=== PATIENT | female | born 1980 | race Caucasian/White ===

== ENCOUNTER → 2017-03-12 | Outpatient (CLI) | payer BC, OTHER ==
[~2017-03-12] MED LIST: BCP PO; CALCIUM; DCS100C PO; FLUO20CA42 PO; HCPR10FM RC; HYDR-3720 PO; HYDR-757 PO; IBP800T PO; MESA800T PO; MULT-608; MULT-985 PO; PRENATAL
--- NOTE | 2017-03-12 08:08 | Diagnostic Imaging Report ---
PROCEDURE: US Gallbladder. TECHNIQUE: Multiple real-time grayscale images were obtained over the right upper quadrant in various projections. Indication: Generalized abdominal bloating, diarrhea. Comparison: 05/12/2013. Discussion: Sonographic evaluation of the right upper quadrant was performed. The liver is normal in echotexture and size. Within the right hepatic lobe there is a 1.1 x 1.4 x 1.4 cm ill-defined hyperechoic nodule which appears new from the prior exam. Findings could be seen with a hemangioma, however, given its interval development, the underlying etiology is indeterminate. At a minimum, recommend short-term 3 month sonographic followup to document stability. More definitive evaluation could be performed with multiphase contrast-enhanced CT or MRI of the abdomen as clinically indicated. The gallbladder appears normal without evidence of cholelithiasis, wall thickening, or pericholecystic fluid. No evidence of biliary duct dilatation. The common bile duct is normal measuring 0.4 cm. The pancreas appears normal as visualized. The right kidney appears normal in echotexture and size without evidence of hydronephrosis or renal mass. The right kidney measures 11.5 cm. There is a simple appearing anechoic 1.3 cm cyst within the right kidney, benign. There is no ascites or abnormal bowel loops identified. No sonographic Amaya sign was reported. Impression: 1. Interval development of a 1.4 cm hyperechoic nodule within the right hepatic lobe, indeterminate. See above recommendations. 2. Simple appearing 1.3 cm right renal cyst. Dictated by: Dictated on workstation # [id number]
== END ==
LOC: RAD 07:03
PROVIDERS: ATTEND Family Medicine
DX: N28.1 Cyst of kidney, acquired (principal); K76.9 Liver disease, unspecified; R19.7 Diarrhea, unspecified
CPT/HCPCS: 76705

== ENCOUNTER → 2017-03-19 | Outpatient (CLI) | payer OTHER ==
[~2017-03-19] MED LIST changes: -BCP PO; +CATHETER FLUSH 10 ML SYR IV PRN; -FLUO20CA42 PO; -HCPR10FM RC; -MESA800T PO; -MULT-985 PO
--- NOTE | 2017-03-19 10:06 | Diagnostic Imaging Report ---
EXAMINATION: HIDA with EF measurements Indication: Abdominal pain TECHNIQUE: After the intravenous administration of 5.1 mCi of Tc 99m Choletec, imaging over the abdomen was obtained. This was followed by administration of Ensure orally to stimulate intrinsic CCK secretion, followed by continued imaging with ejection fraction measured. FINDINGS: There is homogeneous uptake in the liver with prompt bile duct and gallbladder filling seen. Bowel activity is seen at 55 minutes. Based on further imaging and gallbladder area of interest activity measurements after the administration of Ensure, the gallbladder ejection fraction is estimated at 42%. IMPRESSION: 1. Normal hepatobiliary uptake and Gallbladder filling. 2. Borderline gallbladder ejection fraction. The patient had discomfort with the ensure ingestion. Correlate clinically. Dictated by: Dictated on workstation # [id number]
== END ==
LOC: CARD 07:26
PROVIDERS: ATTEND Family Medicine
DX: R19.7 Diarrhea, unspecified (principal)
CPT/HCPCS: 78227

== ENCOUNTER → 2017-03-31 | Outpatient (CLI) | payer OTHER ==
[~2017-03-31] MED LIST changes: +BCP PO; -CATHETER FLUSH 10 ML SYR IV PRN; +FLUO20CA42 PO; +HCPR10FM RC; +MESA800T PO; +MULT-985 PO
--- NOTE | 2017-03-31 17:28 | Diagnostic Imaging Report ---
EXAMINATION: Pelvic ultrasound. INDICATION: Abdominal pain. COMPARISON: There are no previous pelvic ultrasound examinations available for comparison. FINDINGS: The uterus is nongravid and not enlarged measuring 7.3 x 5.4 x 4.0 cm. The endometrial lining is not thickened measuring 4 mm. There is no focal mass involving the uterus to suggest a fibroid. The left ovary was obscured by bowel gas. The right ovary is generally unremarkable. There are a few subcentimeter follicles associated with the right ovary. There is good blood flow to the right ovary as well. There is no solid pelvic mass or free fluid collection noted. IMPRESSION: There is no evidence for an acute pelvic abnormality, although the left ovary was not visualized. Dictated by: Dictated on workstation # [id number]
== END ==
LOC: RAD 16:00
PROVIDERS: ATTEND Surgery
DX: R10.31 Right lower quadrant pain (principal); R10.32 Left lower quadrant pain
CPT/HCPCS: 76830; 76856

== ENCOUNTER 2017-04-02 09:42 | Outpatient (CLI) | payer OTHER ==
[~2017-04-02] VITALS: Ht 154.9 cm; Wt 52.2 kg
[~2017-04-02 09:42] MED LIST changes: -BCP PO; -FLUO20CA42 PO; -HCPR10FM RC; -MESA800T PO; -MULT-985 PO
[2017-04-02] MEDS ORDERED: BCP PO ×2 (10:58)
[2017-04-02] MEDS ORDERED: MULT-985 PO ×2 (10:58)
[2017-04-02] MEDS ORDERED: FLUO20CA42 PO ×2 (11:01)
[2017-04-05] MEDS ORDERED: MESA800T PO ×2 (13:03)
[2017-04-05] MEDS ORDERED: HCPR10FM RC ×2 (13:04)
== END 2017-04-02 11:02 ==
LOC: PREOP 09:42
PROVIDERS: ATTEND Surgery
DX: Z01.818 Encounter for other preprocedural examination (principal); R19.4 Change in bowel habit

== ENCOUNTER → 2017-04-05 | Day surgery (SDC) | payer OTHER ==
[~2017-04-05] MED LIST changes: +BCP PO; +FLUO20CA42 PO; +HCPR10FM RC; +MESA800T PO; +MIDAZOLAM 2 MG/2 ML (VERSED) VIAL ONE; +MULT-985 PO; +NS IV 500 ML 500 ML IV PRN; +NS IV 500 ML 500 ML ONE; +fentaNYL INJECTION 100 MCG/2 ML AMP ONE
[2017-04-05 10:20] VITALS: BP 106/70
--- NOTE | 2017-04-05 11:02 | Conscious Sedation/ASA ---
Conscious Sedation Pre-Proced Time Reviewed: 11:02 ASA Class: 1 Airway Mallampati Classification: (port gamble appropriate class) I. II. III, IV Lungs Heart ASA score ASA 1: a normal healthy patient ASA 2: a patient with a mild systemic disease (mid diabetes, controlled hypertension, obesity ASA 3: a patient with a severe systemic disease that limits activity (angina , COPD, prior Myocardial infarction) ASA 4: a patient with an incapacitating disease that is a constant threat to life (CHF, renal failure) ASA 5: a moribund patient not expected to survive 24 hrs. (ruptured aneurysm) ASA 6: a declared brain patient whose organs are being harvested. For emergent operations, add the letter E after the classification Grade 1 Sedation Plan: Discussed options with patient/fam Note The patient is an appropriate candidate to undergo the planned procedure, sedation, and anesthesia. The patient immediately re-assessed prior to indication. MARCUS MOCTEZUMA MD Apr 05, 2017 11:02 am
--- NOTE | 2017-04-05 11:50 | History & Physicial ---
History of Present Illness History of Present Illness Reason for visit/HPI This young lady came in for her first colonoscopy to evaluate a change in bowel habits. Her symptoms are abdominal pain and diarrhea. She noted that her symptoms seem to be worse when she goes out to eat or eats processed foods, but the symptoms are otherwise sporadic. She denies any family history of colon cancer or polyps. Date of Admission 04/05/2017 Date Seen by Provider: Apr 05, 2017 I consulted on this patient on 04/05/17 11:34 Attending Physician Rivas Riely MD Admitting Physician Rajni Monsivais MD Consult Allergies and Home Medications Allergies Coded Allergies: No Known Drug Allergies (Unverified , 04/02/17) Home Medications Fluoxetine HCl 20 Mg Capsule, 20 MG PO DAILY, (Reported) Multivitamin with Minerals 1 Each Tablet, 1 EACH PO DAILY, (Reported) [Bcp] , 1 TAB PO DAILY, (Reported) Past Yofieaq-Mdomnz-Gimyfk Hx Patient Social History Alcohol Use: Denies Use Recreational Drug Use: No Smoking Status: Never a Smoker Recent Foreign Travel: No Contact w/other who traveled: No Recent Hopitalizations: No Recent Infectious Disease Expo: No Immunizations Up To Date Tetanus Booster (TDap): Less than 5yrs Pediatric: Yes Date of Influenza Vaccine: May 18, 2016 Seasonal Allergies Seasonal Allergies: Yes Surgeries Yes (removal of left Fallopian tube d/t ectopic ) Reproductive System Hx Reproductive Disorders: No Sexually Transmitted Disease: No HIV/AIDS: No Female Reproductive Disorders: Denies Musculoskeletal Scoliosis Psychosocial Behavioral Health Disorders: Anxiety, Depression Blood Transfusions Adverse Reaction to a Blood Tr: No Family Medical History Family Hx: Cataract 03 MOTHER, Onset:40's - 50 Family history: Diabetes mellitus 03 MOTHER, Onset:30's - 40 Visual impairment 03 MOTHER, Onset:40's - 50 (MOTHER CATARACT) No Family History of: Abdominal aortic aneurysm Celso's disease Alcoholism Aphasia Cancer Cancer of colon Chest pain Congenital heart disease Congestive heart failure Cystic fibrosis Dementia Dysphagia Family history: Allergy Family history: Alzheimer's disease Family history: Arthritis Family history: Asthma Family history: Breast disease Family history: Cardiovascular disease Family history: Coronary thrombosis Family history: Gastrointestinal disease Family history: Glaucoma Family history: Hypertension Family history: Osteoporosis Family history: Thyroid disorder Headache Hearing loss Heart disease Hereditary disease History of - anemia History of - disorder History of - respiratory disease History of drug abuse Human immunodeficiency virus (HIV) seropositivity Hypercholesterolemia Infertile Kidney disease Malignant neoplasm of lung Myocardial infarction Parkinson's disease Prostate cancer Psychotic disorder Seizure disorder Stroke Tuberculosis Physical Exam Vital Signs Vital Sign - Last 12Hours 04/05/17 10:20 Temp 98.7 Pulse 79 Resp 18 B/P (MAP) 106/70 Pulse Ox 97 Capillary Refill : CHRISTIAN SMITH MEDICAL STUDENT Apr 05, 2017 11:49
[2017-04-05] MEDS: fentaNYL INJECTION 100 MCG/2 ML AMP IVP PRN ×3 (12:15→12:32)
[2017-04-05] MEDS: MIDAZOLAM 2 MG/2 ML (VERSED) VIAL IVP PRN ×5 (12:22→12:35)
--- NOTE | 2017-04-05 13:00 | Endo Procedure Record ---
Endo Procedure Report Date of Procedure Apr 05, 2017 Surgeon (s) MARCUS MOCTEZUMA MD Post Procedure/Op Diagnosis inflamed and ulcerated mucosa with slough on the surface extending from the rectum to the cecum, with skipped lesions in between. A few pseudopolyps along the cecum Procedure Performed colonoscopy to cecum multiple biopsies Description of Procedure Anesthesia Type: Conscious Sedation Specimen(s) collected/removed multiple fragments of colonic mucosa Description of the Procedure Indication for procedure :This young lady reported lower abdominal pain with a distinct change in her bowel habits over a six-month period. In addition, she reported copious mucus discharge per rectum on a daily basis. Following a pelvic ultrasound examination which was unremarkable, she came in for colonoscopy and further evaluation. Informed consent was obtained after reviewing the procedure in detail. Description of the procedure: she was placed in left lateral decubitus position and her vital signs were monitored. Conscious sedation was achieved using Versed and fentanyl. Digital rectal examination revealed a profound quantity of mucus. The colonoscope was introduced into the rectum and advanced all the way up to the cecum. Scope was then withdrawn slowly and the mucosa examined in a systematic fashion. Findings: Inflamed and featureless colonic mucosa extending from the rectum to the cecum in a segmental fashion. Skin lesions of relatively normal mucosa where found along the descending colon and the transverse colon. Photodocumentation and multiple biopsies were taken She tolerated the procedure well and was taken back to the nursing area in a stable condition. Impression: Change in bowel habits and mucous discharge per rectum. Flamed mucosa with skip lesions. Biopsies pending. Note: Empiric therapy would be initiated immediately pending pathology reports and she will be referred to hand carver for long-term management Copies To: YAMILE PABON MD, XAVIER M MD Apr 05, 2017 1:00 pm
--- NOTE | 2017-04-05 13:02 | Discharge Inst-Simple/Standard ---
Discharge Inst-Standard Discharge Medications New, Converted or Re-Newed RX: RX on Chart Patient Instructions/Follow Up Plan of Care/Instructions/FU: follow-up with me in 2 weeks Activity as Tolerated: Yes Discharge Diet: No Restrictions MARCUS MOCTEZUMA MD Apr 05, 2017 1:02 pm
--- OUTSIDE RECORDS SUMMARY | 2017-04-05 13:27 | XMS REPORT ---
Author Author JACQUELINE DONAHUE Organization [employer] Address Unknown Phone Unavailable Care Team Providers Care Mri Special Procedures Technologist Name Role Phone JACQUELINE DONAHUE CP Unavailable Allergies No Known Allergies Problems Problem Type Condition Code Onset Dates Condition Status Assessment Encounter for immunization Z23 Active Problem Need for prophylactic vaccination and inoculation, Influenza V04.81 Active Medications No Known Medications Procedures Procedure Coding System Code Date SINGLE IMMUNIZATION ADMIN CPT-4 79885 May 16, 2015 FLUARIX QUAD (3 & UP)-GSK-2014 CPT-4 31872 May 16, 2015 Results No Known Results Immunizations Vaccine Administration Date FLUARIX QUAD (3 & UP)-GSK-2014May 16, 2015 Summary Purpose [employer] Submission
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
[2017-04-05 13:30] VITALS: BP 104/75
[2017-04-05 14:10] VITALS: BP 109/69
[2017-04-05 14:26] VITALS: BP 109/69
[2017-04-06 13:46] LABS: ANCA PATTERN Not Indicated; ANTI NEUTROPHIL CYTOPLASM <1:20 (<1:20)
[2017-04-08 08:20] LABS: SACCHAROMYCES CEREVISIAE IGAAB <20.0 Units; SACCHAROMYCES CEREVISIAE IGGAB <20.0 Units
== END | disposition home or self-care (01) ==
LOC: ENDO 10:09
PROVIDERS: ATTEND Surgery
DX: K51.40 Inflammatory polyps of colon without complications (principal); F41.9 Anxiety disorder, unspecified; F32.9 Major depressive disorder, single episode, unspecified; K52.9 Noninfective gastroenteritis and colitis, unspecified; K63.89 Other specified diseases of intestine
CPT/HCPCS: 36415; 84703; 86021; 86671

== ENCOUNTER 2018-04-21 14:36 | Emergency (ER) | payer OTHER ==
[~2018-04-21] VITALS: Ht 152.4 cm; Wt 54.4 kg
[~2018-04-21 14:36] MED LIST changes: -MIDAZOLAM 2 MG/2 ML (VERSED) VIAL ONE; -NS IV 500 ML 500 ML IV PRN; -NS IV 500 ML 500 ML ONE; -fentaNYL INJECTION 100 MCG/2 ML AMP ONE
[2018-04-21] MEDS ORDERED: NS 250 ML (IVPB) BAG IV ONE (16:00)
[2018-04-21] MEDS ORDERED: IOHEXOL 350 MG/ML 100 ML (OMNIPAQUE 350) VIAL IV ONE (16:00)
--- NOTE | 2018-04-21 16:13 | ED General ---
General Chief Complaint: General Problems/Pain Stated Complaint: FLU SYMPTOMS Nursing Triage Note: AMB TO ROOM REPORTS HAS HAD FLU LIKE SYMPTOMS FOR 5 DAYS AND FOR A WHILE HAS HAD ABD CRAMPING WITH DIARRHEA CROHNS TEST WAS NEG. Nursing Sepsis Screen: No Definite Risk Source of Information: Patient Exam Limitations: No Limitations History of Present Illness Date Seen by Provider: Apr 21, 2018 Time Seen by Provider: 16:10 Initial Comments To ER per private vehicle with reports of a one-week history of flulike symptoms , fever up to 100. She's had loose mucousy pink stools. She had a colonoscopy about a year ago done here by Dr. Moctezuma showings skip lesions in the colon with inflammation. She was started on mesalamine with improvement. She then tapered herself off of it. She then had a recurrence of abdominal cramping and loose stools in January of this year, restarted the mesalamine without improvement so self discontinued this. She is scheduled to see commissioning manager Dr Pike on the of this month. She reports diffuse body aches, low back cramping, abdominal cramping persistent loose stools. No cough no shortness of breath. Timing/Duration: 1-2 Days Severity: Moderate Associated Systoms: Fever/Chills, Malaise; No Nausea/Vomiting Allergies and Home Medications Allergies Coded Allergies: No Known Drug Allergies (Verified , 04/05/17) Home Medications Fluoxetine HCl 20 Mg Capsule, 20 MG PO DAILY, (Reported) Hydrocortisone/Pramoxine 10 Gm Foam, 10 GM RC ONCE Prescribed by: MARCUS MOCTEZUMA on 04/05/17 1304 Mesalamine 800 Mg Tablet.dr, 800 MG PO TID Prescribed by: MARCUS MOCTEZUMA on 04/05/17 1303 Multivitamin with Minerals 1 Each Tablet, 1 EACH PO DAILY, (Reported) [Bcp] , 1 TAB PO DAILY, (Reported) Patient Home Medication List Home Medication List Reviewed: Yes Review of Systems Review of Systems Constitutional: see HPI, chills, fever, malaise EENTM: see HPI Respiratory: see HPI; No cough Cardiovascular: no symptoms reported Genitourinary: no symptoms reported Musculoskeletal: no symptoms reported Skin: no symptoms reported Psychiatric/Neurological: No Symptoms Reported Hematologic/Lymphatic: No Symptoms Reported Immunological/Allergic: no symptoms reported Past Hmlnwll-Biucgk-Wdxnca Hx Patient Social History Recent Foreign Travel: No Contact w/Someone Who Travel: No Recent Infectious Disease Expo: No Recent Hopitalizations: No Immunizations Up To Date Tetanus Booster (TDap): Less than 5yrs PED Vaccines UTD: Yes Date of Influenza Vaccine: May 18, 2016 Seasonal Allergies Seasonal Allergies: Yes Past Medical History Surgeries: Yes (ectopic-emergency surgery, LASIK) Respiratory: No Cardiac: No Neurological: No Reproductive Disorders: No Female Reproductive Disorders: Denies Sexually Transmitted Disease: No HIV/AIDS: No Gastrointestinal: Yes (BLOOD IN STOOLS, RECENT CONSTIPATION) Musculoskeletal: No Scoliosis Endocrine: No Cancer: No Psychosocial: Yes Anxiety, Depression Integumentary: No Blood Disorders: No Adverse Reaction/Blood Tranf: No Family Medical History Cataract 03 MOTHER, Onset:40's - 50 Family history: Diabetes mellitus 03 MOTHER, Onset:30's - 40 Visual impairment 03 MOTHER, Onset:40's - 50 (MOTHER CATARACT) No Family History of: Abdominal aortic aneurysm Celso's disease Alcoholism Aphasia Cancer Cancer of colon Chest pain Congenital heart disease Congestive heart failure Cystic fibrosis Dementia Dysphagia Family history: Allergy Family history: Alzheimer's disease Family history: Arthritis Family history: Asthma Family history: Breast disease Family history: Cardiovascular disease Family history: Coronary thrombosis Family history: Gastrointestinal disease Family history: Glaucoma Family history: Hypertension Family history: Osteoporosis Family history: Thyroid disorder Headache Hearing loss Heart disease Hereditary disease History of - anemia History of - disorder History of - respiratory disease History of drug abuse Human immunodeficiency virus (HIV) seropositivity Hypercholesterolemia Infertile Kidney disease Malignant neoplasm of lung Myocardial infarction Parkinson's disease Prostate cancer Psychotic disorder Seizure disorder Stroke Tuberculosis Physical Exam Vital Signs Vital Signs - First Documented 04/21/18 15:15 Temp 101.0 Pulse 113 Resp 18 B/P (MAP) 126/79 (95) Pulse Ox 100 O2 Delivery Room Air Capillary Refill : Less Than 3 Seconds Height, Weight, BMI Height: 5'1.00" Weight: 120lbs. 0.0oz. 54.524050kp; 21.7 BMI Method:Stated General Appearance: No Apparent Distress, WD/WN, Thin Eyes: Bilateral Eye Normal Inspection, Bilateral Eye PERRL, Bilateral Eye EOMI HEENT: PERRL/EOMI, TMs Normal Neck: Full Range of Motion, Normal Inspection Respiratory: Normal Breath Sounds, No Accessory Muscle Use, No Respiratory Distress Cardiovascular: Regular Rate, Rhythm, Normal Peripheral Pulses Gastrointestinal: Normal Bowel Sounds, Non Tender, Soft Extremity: Normal Capillary Refill, Normal Inspection Neurologic/Psychiatric: Alert, Oriented x3 Skin: Normal Color, Warm/Dry (respiratory) Focused Exam Lactate Level 04/21/18 16:48: Lactic Acid Level 1.15 Lactic Acid Level Laboratory Tests Test 04/21/18 16:48 Lactic Acid Level 1.15 MMOL/L (0.50-2.00) Progress/Results/Core Measures Suspected Sepsis Recent Fever Within 48 Hours: No Infection Criteria Present: None New/Unexplained Altered Menta: No Sepsis Screen: No Definite Risk SIRS Temperature:101.0 Pulse: 113 Respiratory Rate: 18 Laboratory Tests 04/21/18 16:07: White Blood Count 12.0H Blood Pressure 126 /79 Mean: 95 04/21/18 16:48: Lactic Acid Level 1.15 Laboratory Tests 04/21/18 16:07: Creatinine 0.72, Platelet Count 311, Total Bilirubin 0.3 Results/Orders Lab Results Laboratory Tests Test 04/21/18 16:07 04/21/18 16:48 04/21/18 17:47 Range/Units White Blood Count 12.0 H 4.3-11.0 10^3/uL Red Blood Count 4.32 L 4.35-5.85 10^6/uL Hemoglobin 13.0 11.5-16.0 G/DL Hematocrit 39 35-52 % Mean Corpuscular Volume 91 80-99 FL Mean Corpuscular Hemoglobin 30 25-34 PG Mean Corpuscular Hemoglobin Concent 33 32-36 G/DL Red Cell Distribution Width 14.0 10.0-14.5 % Platelet Count 311 130-400 10^3/uL Mean Platelet Volume 11.3 H 7.4-10.4 FL Neutrophils (%) (Auto) 63 42-75 % Lymphocytes (%) (Auto) 14 12-44 % Monocytes (%) (Auto) 13 H 0-12 % Eosinophils (%) (Auto) 9 0-10 % Basophils (%) (Auto) 1 0-10 % Neutrophils # (Auto) 7.5 1.8-7.8 X 10^3 Lymphocytes # (Auto) 1.7 1.0-4.0 X 10^3 Monocytes # (Auto) 1.6 H 0.0-1.0 X 10^3 Eosinophils # (Auto) 1.1 H 0.0-0.3 10^3/uL Basophils # (Auto) 0.1 0.0-0.1 10^3/uL Sodium Level 138 135-145 MMOL/L Potassium Level 4.3 3.6-5.0 MMOL/L Chloride Level 104 98-107 MMOL/L Carbon Dioxide Level 21 21-32 MMOL/L Anion Gap 13 5-14 MMOL/L Blood Urea Nitrogen 7 7-18 MG/DL Creatinine 0.72 0.60-1.30 MG/DL Estimat Glomerular Filtration Rate > 60 BUN/Creatinine Ratio 10 Glucose Level 104 70-105 MG/DL Calcium Level 9.4 8.5-10.1 MG/DL Corrected Calcium 9.6 8.5-10.1 MG/DL Total Bilirubin 0.3 0.1-1.0 MG/DL Aspartate Amino Transf (AST/SGOT) 18 5-34 U/L Alanine Aminotransferase (ALT/SGPT) 13 0-55 U/L Alkaline Phosphatase 97 40-136 U/L Total Protein 6.9 6.4-8.2 GM/DL Albumin 3.7 3.2-4.5 GM/DL Serum Test, Qualitative NEGATIVE NEGATIVE Lactic Acid Level 1.15 0.50-2.00 MMOL/L Urine Color YELLOW Urine Clarity CLEAR Urine pH 8 5-9 Urine Specific [place] 1.010 L 1.016-1.022 Urine Protein NEGATIVE NEGATIVE Urine Glucose (UA) NEGATIVE NEGATIVE Urine Ketones 2+ H NEGATIVE Urine Nitrite NEGATIVE NEGATIVE Urine Bilirubin NEGATIVE NEGATIVE Urine Urobilinogen NORMAL NORMAL MG/DL Urine Leukocyte Esterase NEGATIVE NEGATIVE Urine RBC (Auto) 5+ H NEGATIVE Urine RBC >100 H /HPF Urine WBC NONE /HPF Urine Squamous Epithelial Cells 0-2 /HPF Urine Crystals PRESENT H /LPF Urine Amorphous Sediment FEW CRISTINA PHOSPHATE H /LPF Urine Bacteria NONE /HPF Urine Casts NONE /LPF Urine Mucus NEGATIVE /LPF Urine Culture Indicated NO My Orders Orders - ZARA ALMANZA APRN Ua Culture If Indicated (04/21/18 15:29) Cbc With Automated Diff (04/21/18 15:29) Comprehensive Metabolic Panel (04/21/18 15:29) Iv Heplock-Insert (Order) (04/21/18 15:29) Ct Abdomen/Pelvis W Wo (04/21/18 15:29) Blood Culture (04/21/18 15:40) Lactic Acid Analyzer (04/21/18 15:40) Iohexol Injection (Omnipaque 350 Mg/Ml 1 (04/21/18 16:00) Ns (Ivpb) (Sodium Chloride 0.9%) (04/21/18 16:00) Pharmacy Communication (Pharmacy Communi (04/21/18 15:51) Fentanyl Injection (Sublimaze Injection (04/21/18 16:15) Ns Iv 1000 Ml (Sodium Chloride 0.9%) (04/21/18 16:15) Hcg,Qualitative Serum (04/21/18 16:09) Medications Given in ED Current Medications Medications Dose Ordered Sig/Aly Route Start Time Stop Time Status Last Admin Dose Admin Iohexol 100 ml ONCE ONCE IV 04/21/18 16:00 04/21/18 16:01 DC 04/21/18 17:52 75 ML Sodium Chloride 250 ml ONCE ONCE IV 04/21/18 16:00 04/21/18 16:01 DC 04/21/18 17:52 80 ML Vital Signs/I&O 04/21/18 15:15 Temp 101.0 Pulse 113 Resp 18 B/P (MAP) 126/79 (95) Pulse Ox 100 O2 Delivery Room Air Capillary Refill : Less Than 3 Seconds Blood Pressure Mean: 95 Diagnostic Imaging Diagonstic Imaging: CT Comments NAME: ARABELLA [facility]IRA [facility] REC#: [id number] PT STATUS: REG ER : 1980 PHYSICIAN: ZARA ALMANZA APRN ADMIT DATE: 04/21/18/ER Draft Date of Exam:04/21/18 CT ABDOMEN/PELVIS W WO PROCEDURE: CT abdomen and pelvis with and without contrast. TECHNIQUE: Precontrast acquisitions were acquired through the abdomen and pelvis. Multiple contiguous axial images were obtained through the abdomen and pelvis after the administration of intravenous contrast. DATE: April 21, 2018. COMPARISON: Right upper quadrant ultrasound March 12, 2017. INDICATION: 37-year-old female, right-sided and anterior abdominal pain, bloating. FINDINGS: The visualized portions of the lung bases are clear. The heart is not enlarged. There is no pericardial effusion. The liver is unremarkable in size and contour. The liver is somewhat heterogeneous in attenuation. There is no identified focal liver lesion. The main, left, and right portal veins appear patent. The superior mesenteric vein is patent. The hepatic veins are not well assessed on this exam. The gallbladder is unremarkable. There is no intrahepatic or extrahepatic bile duct dilation. The main pancreatic duct is normal in caliber. The pancreatic parenchyma is unremarkable. The spleen is not enlarged. The adrenal glands are unremarkable. There is a low-attenuation right renal lesion on axial image 30 compatible with benign cyst measuring 1.2 cm in size. The urinary collecting systems are not distended. There is no identified renal or ureteral stone. There are pelvic calcifications compatible with phleboliths. The urinary bladder is grossly unremarkable in appearance. Oval very low attenuation tubular structure in the region of the vaginal vault likely relates to tampon. There is abnormal mucosal enhancement, wall thickening, and inflammatory stranding as well as prominence of adjacent mesenteric vascularity extending from the level of the rectum to the level of the splenic flexure. The additional colonic segments are grossly unremarkable in appearance. There is no identified abnormal mucosal enhancement or wall thickening at the level of the terminal ileum. The intestinal tract is not distended. There is no free intraperitoneal air. There is no drainable fluid collection. There is no free pelvic fluid. There is no identified abnormally enlarged lymph node within the abdomen or pelvis, which specifically meets CT size criteria for adenopathy. There are mildly prominent subcentimeter short axis left iliac chain lymph nodes. One such example is on axial image 60 and measures 6 mm in short axis. The sacroiliac joints are normal in appearance. There is no identified acute bony abnormality. IMPRESSION: CT ABDOMEN AND PELVIS. 1. Prominent mucosal enhancement, wall thickening, inflammatory stranding, and prominence of the mesenteric vascularity extending contiguously from the level of the rectum to the splenic flexure. Differential diagnostic considerations would include an infectious colitis or an inflammatory colitis such as ulcerative colitis. 2. Diffuse heterogeneous attenuation of the liver parenchyma without identified focal liver lesion or other apparent abnormality of the liver. Correlation with liver function tests may be helpful. Dictated on workstation # [id number] Dict: 04/21/181801 Trans: 04/21/181811 [id number] Interpreted by: MUNDO PYLE MD Electronically signed by: Departure Communication (Admissions) I discussed the case and the CT results with Dr. Dockery on-call for surgery. Agrees with steroid taper and antibiotics. Impression Primary Impression: Ulcerative colitis Disposition: HOME, SELF-CARE Condition: Stable Departure-Patient Inst. Decision time for Depature: 18:31 Referrals: YAMILE PABNO MD (PCP/Family) Primary Care Physician Patient Instructions: Ulcerative Colitis (DC) Add. Discharge Instructions: 1. take antibiotics and steroids as directed 2. Return to ER for any concerns such as worsening pain or fevers or vomiting 3. Follow-up with your doctor as scheduled. Scripts Prednisone (Prednisone) 5 Mg Tablet 5 MG PO UD, #55 TAB 10 tablets on day 1 then reduce by one tablet daily until gone Prov: ZARA ALMANZA APRN 04/21/18 Hydrocodone/Acetaminophen ([place] 5-325 Tablet) 1 Each Tablet 1 EACH PO Q6H PRN for PAIN-MODERATE MDD 10, #14 TAB Prov: ZARA ALMANZA APRN 04/21/18 Metronidazole (Flagyl) 500 Mg Tablet 500 MG PO TID, #21 TAB Prov: ZARA ALMANZA APRN 04/21/18 Ciprofloxacin HCl (Cipro) 500 Mg Tablet 500 MG PO BID, #14 TAB Prov: ZARA ALMANZA APRN 04/21/18 Work/School Note: Work Release Form Date Seen in the Emergency Department: Apr 21, 2018 Return to Work: Apr 23, 2018 ZARA ALMANZA APRN Apr 21, 2018 16:13
[2018-04-21] MEDS ORDERED: fentaNYL INJECTION 100 MCG/2 ML AMP IVP ONE (16:15)
[2018-04-21] MEDS ORDERED: NS IV 1000 ML 1,000 ML IV SCH (16:15)
[2018-04-21 16:36] LABS: BASOPHILS # (AUTO) 0.1 10^3/uL (0.0-0.1); BASOPHILS % (AUTO) 1 % (0-10); EOSINOPHILS # (AUTO) 1.1 10^3/uL (0.0-0.3); EOSINOPHILS % (AUTO) 9 % (0-10); HEMATOCRIT 39 % (35-52); LYMPHOCYTES # (AUTO) 1.7 X 10^3 (1.0-4.0); LYMPHOCYTES % (AUTO) 14 % (12-44); MEAN CORPUSCULAR HEMOGLOBIN 30 PG (25-34); MEAN CORPUSCULAR HGB CONC 33 G/DL (32-36); MEAN CORPUSCULAR VOLUME 91 FL (80-99); MEAN PLATELET VOLUME 11.3 FL (7.4-10.4); MONOCYTES # (AUTO) 1.6 X 10^3 (0.0-1.0); MONOCYTES % (AUTO) 13 % (0-12); NEUTROPHILS # (AUTO) 7.5 X 10^3 (1.8-7.8); NEUTROPHILS % (AUTO) 63 % (42-75); PLATELET COUNT 311 10^3/uL (130-400); RED BLOOD COUNT 4.32 10^6/uL (4.35-5.85)
[2018-04-21 16:54] LABS: ALANINE AMINOTRANSFERASE 13 U/L (0-55); ALBUMIN 3.7 GM/DL (3.2-4.5); ALKALINE PHOSPHATASE 97 U/L (40-136); BILIRUBIN,TOTAL 0.3 MG/DL (0.1-1.0); BUN/CREATININE RATIO 10; CALCIUM 9.4 MG/DL (8.5-10.1); CARBON DIOXIDE 21 MMOL/L (21-32); CHLORIDE 104 MMOL/L (98-107); CREATININE SERUM 0.72 MG/DL (0.60-1.30); GFR ESTIMATED > 60; GLUCOSE 104 MG/DL (70-105); POTASSIUM 4.3 MMOL/L (3.6-5.0); SODIUM 138 MMOL/L (135-145); TOTAL PROTEIN 6.9 GM/DL (6.4-8.2)
[2018-04-21 18:04] LABS: BILIRUBIN,URINE NEGATIVE (NEGATIVE); CLARITY,URINE CLEAR; COLOR,URINE YELLOW; GLUCOSE, URINE (UA) NEGATIVE (NEGATIVE); KETONES,URINE 2+ (NEGATIVE); LEUKOCYTE ESTERASE ,URINE NEGATIVE (NEGATIVE); NITRITE,URINE NEGATIVE (NEGATIVE); PH,URINE 8 (5-9); PROTEIN,URINE NEGATIVE (NEGATIVE); UROBILINOGEN,URINE NORMAL (NORMAL)
--- NOTE | 2018-04-21 18:13 | Diagnostic Imaging Report ---
PROCEDURE: CT abdomen and pelvis with and without contrast. TECHNIQUE: Precontrast acquisitions were acquired through the abdomen and pelvis. Multiple contiguous axial images were obtained through the abdomen and pelvis after the administration of intravenous contrast. DATE: April 21, 2018. COMPARISON: Right upper quadrant ultrasound March 12, 2017. INDICATION: 37-year-old female, right-sided and anterior abdominal pain, bloating. FINDINGS: The visualized portions of the lung bases are clear. The heart is not enlarged. There is no pericardial effusion. The liver is unremarkable in size and contour. The liver is somewhat heterogeneous in attenuation. There is no identified focal liver lesion. The main, left, and right portal veins appear patent. The superior mesenteric vein is patent. The hepatic veins are not well assessed on this exam. The gallbladder is unremarkable. There is no intrahepatic or extrahepatic bile duct dilation. The main pancreatic duct is normal in caliber. The pancreatic parenchyma is unremarkable. The spleen is not enlarged. The adrenal glands are unremarkable. There is a low-attenuation right renal lesion on axial image 30 compatible with benign cyst measuring 1.2 cm in size. The urinary collecting systems are not distended. There is no identified renal or ureteral stone. There are pelvic calcifications compatible with phleboliths. The urinary bladder is grossly unremarkable in appearance. Oval very low attenuation tubular structure in the region of the vaginal vault likely relates to tampon. There is abnormal mucosal enhancement, wall thickening, and inflammatory stranding as well as prominence of adjacent mesenteric vascularity extending from the level of the rectum to the level of the splenic flexure. The additional colonic segments are grossly unremarkable in appearance. There is no identified abnormal mucosal enhancement or wall thickening at the level of the terminal ileum. The intestinal tract is not distended. There is no free intraperitoneal air. There is no drainable fluid collection. There is no free pelvic fluid. There is no identified abnormally enlarged lymph node within the abdomen or pelvis, which specifically meets CT size criteria for adenopathy. There are mildly prominent subcentimeter short axis left iliac chain lymph nodes. One such example is on axial image 60 and measures 6 mm in short axis. The sacroiliac joints are normal in appearance. There is no identified acute bony abnormality. IMPRESSION: CT ABDOMEN AND PELVIS. 1. Prominent mucosal enhancement, wall thickening, inflammatory stranding, and prominence of the mesenteric vascularity extending contiguously from the level of the rectum to the splenic flexure. Differential diagnostic considerations would include an infectious colitis or an inflammatory colitis such as ulcerative colitis. 2. Diffuse heterogeneous attenuation of the liver parenchyma without identified focal liver lesion or other apparent abnormality of the liver. Correlation with liver function tests may be helpful. Dictated by: Dictated on workstation # [id number]
[2018-04-21 18:20] LABS: RBC,URINE >100 /HPF; SQUAMOUS EPITHELIAL CELL,UR 0-2 /HPF
[2018-04-21 18:21] LABS: AMORPHOUS SEDIMENT,UR FEW AMOR PHOSPHATE /LPF
[2018-04-21] MEDS ORDERED: HYDR-4226 PO (18:40)
[2018-04-21] MEDS ORDERED: CIPR-225 PO (18:40)
[2018-04-21] MEDS ORDERED: METR500T PO (18:40)
[2018-04-21] MEDS ORDERED: PRED5TAB PO (18:40)
[2018-04-21] MEDS ORDERED: LEVOFLOXACIN 500 MG TAB (LEVAQUIN) PO ONE (18:45)
[2018-04-21] MEDS ORDERED: HYDROcodone/APAP 5 MG/325 MG (LORTAB) TAB PO ONE (18:45)
[2018-04-21] MEDS ORDERED: methylPREDNISolone 125 MG (Solu-MEDROL) VIAL IVP ONE (18:45)
[2018-04-21] MEDS ORDERED: metroNIDAZOLE 500 MG (FLAGYL) TAB PO ONE (18:45)
[2018-04-21 19:05] VITALS: BP 115/74
== END 2018-04-21 19:05 | disposition home or self-care (01) ==
LOC: EDUNIT# 14:36 → ER 14:37
DX: K51.90 Ulcerative colitis, unspecified, without complications (principal); F41.9 Anxiety disorder, unspecified; F32.9 Major depressive disorder, single episode, unspecified; Z79.51 Long term (current) use of inhaled steroids
CPT/HCPCS: 36415; 74178; 80053; 81000; 83605; 84703; 85025; 87040; 96361; 96374; 96375

== ENCOUNTER → 2019-08-03 | Outpatient (CLI) | payer OTHER ==
[~2019-08-03] MED LIST changes: +CIPR-225 PO; +HYDR-4226 PO; +METR500T PO; +PRED5TAB PO
--- NOTE | 2019-08-03 09:06 | Diagnostic Imaging Report ---
INDICATION: Routine screening. No prior mammograms are available for comparison. This is a baseline study. 2-D and 3-D bilateral screening mammography was performed with a Computer Aided Detection (CAD) system. 3-D tomosynthesis was also performed and reviewed. FINDINGS: Scattered fibroglandular densities are identified bilaterally. Benign calcifications are noted. No mass or malignant appearing microcalcifications are seen. Axillae are unremarkable. IMPRESSION: No mammographic features suspicious for malignancy are identified. ACR BI-RADS Category 2: Benign findings. Result letter will be mailed to the patient. Note: At least 10% of breast cancer is not imaged by mammography. Dictated by: Dictated on workstation # [id number]
--- NOTE | 2019-08-03 13:53 | Diagnostic Imaging Report ---
PROCEDURE: US Gallbladder. TECHNIQUE: Multiple real-time grayscale images were obtained over the right upper quadrant in various projections. INDICATION: Right upper quadrant pain. FINDINGS: The liver is normal in size at 15.8 cm. No discrete liver mass is identified. The portal vein is patent and shows normal direction of flow. Gallbladder is without stones or sludge. No wall thickening or biliary ductal dilatation is identified. Pancreas is unremarkable. Aorta is nonaneurysmal. IVC is patent. Right kidney does contain an approximately 14 mm cyst in the upper pole. No calculi or hydronephrosis is seen. There is no ascites. IMPRESSION: 1. No evidence of cholelithiasis or acute cholecystitis. 2. Small right renal cyst. Dictated by: Dictated on workstation # [id number]
== END ==
LOC: RAD 07:47
PROVIDERS: ATTEND Obstetrics & Gynecology
DX: Z12.31 Encounter for screening mammogram for malignant neoplasm of breast (principal); N28.1 Cyst of kidney, acquired
CPT/HCPCS: 76705; 77067

== ENCOUNTER 2019-09-15 15:50 | Outpatient (RCR) | payer OTHER ==
[2019-09-08 09:25] VITALS: BP 114/79
[~2019-09-15] VITALS: Ht 155 cm; Wt 55.5 kg
[~2019-09-15 15:50] MED LIST changes: +FERRIC CARBOXYMALTOSE INJ 750 MG in NS (IVPB) 250 ML IV SCH
[2019-09-15] MEDS ORDERED: FERRIC CARBOXYMALTOSE INJ 750 MG in NS (IVPB) 250 ML IV SCH (16:15)
[2019-09-15 16:45] VITALS: BP 103/44
== END 2019-09-15 16:45 | disposition home or self-care (01) ==
LOC: SDC 15:50
PROVIDERS: ATTEND Internal Medicine
DX: D50.9 Iron deficiency anemia, unspecified (principal)
CPT/HCPCS: 96365

== ENCOUNTER → 2023-06-30 | Outpatient (CLI) | payer OTHER ==
[~2023-06-30] MED LIST changes: -FERRIC CARBOXYMALTOSE INJ 750 MG in NS (IVPB) 250 ML IV SCH; +MULT-1054 PO; -MULT-985 PO
--- NOTE | 2023-06-30 13:02 | Diagnostic Imaging Report ---
INDICATION: Routine screening. Comparison is made with prior mammogram from 08/03/2019. 2-D and 3-D bilateral screening mammography was performed with CAD. Both breasts are heterogeneously dense, limiting the sensitivity of mammography. The parenchymal pattern is stable. No mass or malignant-appearing microcalcifications are identified. Axillae are unremarkable. IMPRESSION: No mammographic features suspicious for malignancy are identified. ACR BI-RADS Category 1: Negative. Result letter will be mailed to the patient. Note: At least 10% of breast cancer is not imaged by mammography. BI-RADS Category 1 Dictated by: Dictated on workstation # [id number]
== END ==
LOC: RAD 10:02
PROVIDERS: ATTEND Nurse Practitioner
DX: Z12.31 Encounter for screening mammogram for malignant neoplasm of breast (principal)
CPT/HCPCS: 77063; 77067